=== PATIENT | female | born 1950 | race American Indian/Alaskan Native ===

== ENCOUNTER 2017-08-05 05:49 | Day surgery (SDC) | payer MEDICARE ==
[2017-08-05] MEDS ORDERED: ANCEF/STERILE WATER 2 GM/20 ML 2 GM/20 ML SYRINGE IV NR (06:00)
[2017-08-05] MEDS ORDERED: PEPCID PO NR (06:00)
[2017-08-05] MEDS ORDERED: NACL 0.9% 1000 ML 1,000 ML IV SCH (06:00)
[2017-08-05] MEDS ORDERED: NACL BACTERIOSTATIC INFILTRATI ONE (06:37)
--- NOTE | 2017-08-05 06:59 | Anesthesia Consultation ---
Anesthesia Consult and Med Hx Date of service: 08/05/17 - Airway Anesthetic Teeth Evaluation: Poor ROM Head & Neck: Adequate Mental/Hyoid Distance: Adequate Mallampati Class: Class II Intubation Access Assessment: Probably Good - Pulmonary Exam CTA: Yes - Cardiac Exam Cardiac Exam: RRR - Pre-Operative Health Status ASA Pre-Surgery Classification: ASA3 Proposed Anesthetic Plan: General, MAC - Pulmonary Hx Smoking: Yes (2 cigs per day) - Cardiovascular System Hx Hypertension: Yes Hx Peripheral Vascular Disease: Yes (bilateral carotid stenosis) - Central Nervous System CVA: Yes (left sided weakness) - Endocrine Hx End Stage Renal Disease: Yes (dialysis TTS) - Other Systems Hx Alcohol Use: Yes Hx Substance Use: Yes (cocaine) Hx Obesity: Yes - Additional Comments Anesthesia Medical History Comments: gout
--- NOTE | 2017-08-05 07:01 | Anesthesia Day of Surgery ---
Anesthesia Day of Surgery - Day of Surgery Patient Examined: Yes Patient H&P Reviewed: Yes Patient is NPO: Yes
[2017-08-05 07:06] LABS: Basophils % (Auto) 0.9 % (0.0-1.8); Eosinophils % (Auto) 4.3 % (0.0-4.3); Hematocrit 35.9 % (30.3-42.9); Mean Corpuscular HGB Conc 34 % (30-34); Mean Corpuscular Hemoglobin 30 pg (28-32); Mean Corpuscular Volume 88 fl (79-97); Platelet Count 270 K/mm3 (140-440); Red Blood Count 4.08 M/mm3 (3.65-5.03); Red Cell Distribution Width 15.7 % (13.2-15.2); White Blood Count 6.3 K/mm3 (4.5-11.0)
[2017-08-05 07:17] LABS: BUN/Creatinine Ratio 16.9; Calcium 9.6 mg/dL (8.4-10.2); Chloride 103.4 mmol/L (98-107)
[2017-08-05] MEDS ORDERED: DIPRIVAN 10 MG/ML IV ONE ×3 (07:35→10:35)
[2017-08-05] MEDS ORDERED: MARCAINE-EPI/PF 0.5%-1:200,000 INFILTRATI ONE (07:43)
[2017-08-05] MEDS ORDERED: XYLOCAINE 1% 20 mL ONE (07:43)
[2017-08-05] MEDS ORDERED: HEPARIN 10,000 UNITS/10 ML ONE ×3 (07:43→13:24)
[2017-08-05] MEDS ORDERED: NACL 0.9% 500 ML 500 ML ONE (07:44)
[2017-08-05] MEDS ORDERED: ZOFRAN IV PRN (09:00)
[2017-08-05] MEDS ORDERED: PERCOCET 5/325 PO PRN (09:00)
[2017-08-05] MEDS ORDERED: XYLOCAINE MPF 2% ONE (09:05)
[2017-08-05] MEDS ORDERED: VERSED ONE (09:05)
[2017-08-05] MEDS ORDERED: RIFADIN ONE (09:29)
[2017-08-05] MEDS ORDERED: NACL 0.9% IR ONE (09:49)
[2017-08-05] MEDS ORDERED: MARCAINE 0.5% INFILTRATI ONE ×2 (09:50)
[2017-08-05] MEDS ORDERED: XYLOCAINE 1%/ EPI 1:100,000 INFILTRATI ONE ×2 (09:50)
[2017-08-05] MEDS ORDERED: SODIUM BICARBONATE IV ONE (09:50)
[2017-08-05] MEDS ORDERED: RIFADIN 600 MG in NACL 0.9% 50 ML IR ONE (09:51)
[2017-08-05] MEDS ORDERED: HEPARIN 10,000 UNITS/10 ML 2,000 UNIT in NACL 0.9% 500 ML 500 ML IR ONE (09:51)
[2017-08-05] MEDS ORDERED: GELFOAM TP ONE ×2 (10:04→10:06)
[2017-08-05] MEDS ORDERED: THROMBIN (BOVINE) TP ONE (10:05)
[2017-08-05] MEDS ORDERED: THROMBIN SPRAYKIT (BOVINE) TP ONE (10:06)
--- NOTE | 2017-08-05 11:26 | Short Stay Summary ---
Short Stay Documentation Date of service: 08/05/17 - History H&P: obtained from office Past Medical History: ESRD, hypertension - Allergies and Medications Current Medications: Allergies No Known Allergies Allergy (Verified 08/03/17 12:17) Active Medications Famotidine (Pepcid) 20 mg PO PREOP NR Stop: 08/05/17 16:00 Last Admin: 08/05/17 07:00 Dose: 20 mg Hydromorphone HCl (Dilaudid) 0.25 mg IV Q10MIN PRN PRN Reason: Pain, Moderate (4-6) Stop: 08/05/17 15:00 Cefazolin Sodium (Ancef/Sterile Water 2 Gm/20 Ml) 2 gm in 20 mls @ 80 mls/hr IV PREOP NR PRN Reason: Protocol Stop: 08/05/17 23:00 Sodium Chloride (Nacl 0.9% 1000 Ml) 1,000 mls @ 42 mls/hr IV DIRECT MATTIE Last Admin: 08/05/17 06:45 Dose: 42 mls/hr - Brief post op/procedure progress note Pre-op diagnosis: ESRD, need for permanent dialysis access Post-op diagnosis: same Procedure: Creation of Left AV graft Anesthesia: MAC Findings: patent access, palpable radial pulse Surgeon: ALESIA DIAZ Estimated blood loss: minimal Pathology: none Condition: stable - Hospital course Hospital course: Patient underwent elective surgery uneventfully. Discharged home after recovery. - Disposition Condition at discharge: Good Disposition: DC-01 TO HOME OR SELFCARE Short Stay Discharge Plan Wound: open to air, keep clean and dry Additional Instructions: 1. Keep arm elevated on pillows. 2. Use sponge ball to help maintain range of motion. 3. Call for problems. Follow up with: ALESIA DIAZ MD [Staff Physician] - 14 Days
[2017-08-05] MEDS: DILAUDID IV PRN ×2 (11:31→11:41)
--- NOTE | 2017-08-05 11:41 | Post Anesthesia Evaluation ---
- Post Anesthesia Evaluation Patient Participated: Yes Airway Patent: Yes Stable Respiratory Function: Yes Nausea/Vomiting: No Temp > 96.8F: Yes Pain Manageable: Yes Adequeate Hydration: Yes Anesthesia Complications: No Block Receding Appropriately: Not Applicable Patient on Ventilator: No
[2017-08-05 12:52] VITALS: BP 167/91
--- NOTE | 2017-08-05 14:21 | Operative Report ---
PREOPERATIVE DIAGNOSES: End-stage renal disease, need for permanent dialysis access. POSTOPERATIVE DIAGNOSES: End-stage renal disease, need for permanent dialysis access. PROCEDURE: Creation of left AV graft brachial axillary -- [place] 4-7 mm PTFE heparin bonded. SURGEON: Sergio Gibbons MD COMPLICATIONS: None. INDICATIONS: This patient has end-stage renal disease and uses a Perm-A-Cath for dialysis access. She needs permanent dialysis access. Her superficial veins were inadequate for use. She was brought to surgery for creation of an AV graft. DETAILS OF PROCEDURE: Consent was obtained. The patient was taken to the operating room and placed in supine position. Appropriate levels of anesthesia was provided. The patient's left arm was prepped and draped in sterile fashion. We placed the arm outstretched on the operating room table. We evaluated the superficial veins to consider the possibility of AV fistula; however, they were inadequate for use. We proceeded on with exposure of the brachial artery. This was done via a longitudinal incision on the inner aspect of the arm. The subcutaneous tissue was dissected. We were able to enter the brachial sheath and identified the brachial artery. This was controlled with vessel loops. We then made an incision in the axilla with a 10 blade, dissected down through the subcutaneous tissue and identified the axillary vein. We encircled this with vessel loops and then exposed it, ligated some other superficial veins in the area with silk ties and then transected it. We then proceeded on with a Pura-Wick tunneler to tunnel the AV graft and then commenced with the arterial anastomosis. An end-to-side anastomosis was created with the 4 mm create the inflow. An end-to-side was created this with 6-0 Prolene. At the completion of the anastomosis, we had a good flow through the graft. The patient maintained a good radial pulse. We flushed the graft with heparinized saline. The venous anastomosis was then created. We created a venotomy with an 11 blade and then flushed inner aspects of the vessel. The graft was trimmed to fit to create an end-to-side anastomosis with 6-0 Prolene. After this was done, we released the control on the graft and felt a palpable thrill. Hemostasis was obtained using electrocautery and Gelfoam and thrombin. No further intervention was necessary. We closed the wounds with 3-0 Vicryl and then performed skin approximation with 4-0 Monocryl. Sterile dressings were applied. The patient was awakened from anesthesia and taken to recovery room having suffered no complications. JOB# [id number] GARTH/RADHA
[2017-08-05] MEDS ORDERED: NEO SYNEPHRINE ONE (14:47)
[2017-08-05] MEDS ORDERED: NACL 0.9% 0 ML ONE (14:47)
== END 2017-08-05 13:25 | disposition home or self-care (01) ==
LOC: OR 05:49
PROVIDERS: ATTEND Surgery Vascular Surgery
DX: I12.0 Hypertensive chronic kidney disease with stage 5 chronic kidney disease or end stage renal disease (principal); N18.6 End stage renal disease; Z99.2 Dependence on renal dialysis; M10.9 Gout, unspecified; F10.21 Alcohol dependence, in remission; F14.21 Cocaine dependence, in remission; F17.210 Nicotine dependence, cigarettes, uncomplicated; E66.9 Obesity, unspecified; Z68.35 Body mass index [BMI] 35.0-35.9, adult; Z79.899 Other long term (current) drug therapy; Z79.82 Long term (current) use of aspirin; Z86.73 Personal history of transient ischemic attack (TIA), and cerebral infarction without residual deficits; Z72.89 Other problems related to lifestyle; Z86.79 Personal history of other diseases of the circulatory system; Z98.51 Tubal ligation status; Z98.890 Other specified postprocedural states; Z82.49 Family history of ischemic heart disease and other diseases of the circulatory system
CPT/HCPCS: 36415; 36830; 80048; 85025; A4649; C1768; J0690; J1170; J1644; J2250; J2704; J3490; J7030; J7040; J2370